=== PATIENT | male | born 1975 | race Caucasian/White ===

== ENCOUNTER → 2023-04-09 | Outpatient (CLI) | payer SELFPAY ==
[2023-04-09 17:47] LABS: PSA,Total - Annual Screen 0.58 ng/mL (0.00-4.00)
== END | disposition home or self-care (01) ==
PROVIDERS: PCP Family Medicine; Referring Provider Urology; Visit Provider Urology
DX: Z12.5 Encounter for screening for malignant neoplasm of prostate (principal); R31.1 Benign essential microscopic hematuria
CPT/HCPCS: 36415; 84153; 87086; G0103

== ENCOUNTER → 2024-04-17 | Outpatient (CLI) | payer SELFPAY ==
--- NOTE | 2024-04-17 08:07 | RAD_ITS ---
STUDY: X-RAY - ABDOMEN/PELVIS REASON FOR EXAM: Male, 49 years old. Ureteral calculi. TECHNIQUE: Single AP view of the abdomen / pelvis on 3 images. COMPARISON: None. FINDINGS: Normal visualized lung bases. Normal bowel gas pattern with air seen to the rectum. Moderate to marked amount of feces in the colon. The visualized liver, spleen and kidneys are grossly normal in size and morphology. Phleboliths. Normal visualized osseous structures. RAD/Abdomen Single View IMPRESSION: Moderate amount of feces in the colon. No abnormal intra-abdominal calcifications identified. Electronically Signed: Adam Márquez MD at 9:16 EDT ,
== END | disposition home or self-care (01) ==
LOC: RAD 08:01
PROVIDERS: PCP Family Medicine; Referring Provider Urology; Visit Provider Urology
DX: N20.1 Calculus of ureter (principal)
CPT/HCPCS: 74018